=== PATIENT | female | born 1985 | race Caucasian/White ===

== ENCOUNTER → 2020-04-12 | Outpatient (CLI) | payer OTHER | LOC: ULTRA 12:50 | PROVIDERS: ATTEND Obstetrics & Gynecology | DX: O20.9 Hemorrhage in early pregnancy, unspecified (principal); Z3A.09 9 weeks gestation of pregnancy ==

== ENCOUNTER → 2020-06-23 | Outpatient (CLI) | payer OTHER | LOC: ULTRA 12:53 | PROVIDERS: ATTEND Obstetrics & Gynecology | DX: Z34.92 Encounter for supervision of normal pregnancy, unspecified, second trimester (principal); Z3A.19 19 weeks gestation of pregnancy ==

== ENCOUNTER 2020-07-10 12:19 | Emergency (ER) | payer OTHER ==
[~2020-07-10] VITALS: Ht 165.1 cm; Wt 68.0 kg
[2020-07-10 12:51] LABS: ABSOLUTE NEUTROPHILS 9.2 thou/uL (1.4-8.2); BASOPHILS 0.2 % (0.0-2.0); EOSINOPHILS 0.6 % (0.0-3.0); HEMATOCRIT 38.3 % (37.0-47.0); LYMPHOCYTES 13.9 % (24.0-44.0); MCH 32.2 pg (26.0-34.0); MCHC 33.9 g/dL (28.0-37.0); MCV 94.9 fL (80.0-100.0); MONOCYTES 4.9 % (1.0-8.0); PLATELET COUNT 325 thou/uL (150-400); POLYS 80.4 % (36.0-66.0); RBC 4.03 mil/uL (4.20-5.00); RDW 13.6 % (10.5-14.5); WBC 11.4 thou/uL (4.0-11.0)
[2020-07-10 13:03] LABS: CALCIUM 8.9 mg/dL (8.5-10.1); CREATININE 0.6 mg/dL (0.6-1.0); POTASSIUM 4.1 mmol/L (3.5-5.1)
[2020-07-10 13:10] LABS: TOTAL BILIRUBIN 0.1 mg/dL (0.2-1.0); TOTAL PROTEIN 6.5 g/dL (6.4-8.2)
[2020-07-10 14:32] VITALS: BP 105/68
== END 2020-07-10 14:30 | disposition home or self-care (01) ==
LOC: ER 12:19
PROVIDERS: Physician Assistant
DX: O26.892 Other specified pregnancy related conditions, second trimester (principal); M79.651 Pain in right thigh; R06.02 Shortness of breath; R20.2 Paresthesia of skin; Z88.1 Allergy status to other antibiotic agents; Z3A.22 22 weeks gestation of pregnancy

== ENCOUNTER → 2020-09-11 | Outpatient (CLI) | payer OTHER | LOC: MRI 08-29 15:53 | PROVIDERS: ATTEND Otolaryngology | DX: H93.A1 Pulsatile tinnitus, right ear (principal) ==